=== PATIENT | female | born 1965 | race Caucasian/White ===

== ENCOUNTER 2021-11-16 10:02 | Inpatient (IN) ==
--- NOTE | 2021-08-06 15:29 | PAT Medication Instructions ---
Medication Instructions Date of Service August 06, 2021 Home Medications aspirin 81 mg tablet,delayed release (Aspirin Low Dose) 81 mg PO QAM atorvastatin 40 mg tablet 40 mg PO QPM clopidogrel 75 mg tablet 75 mg PO QAM docusate sodium 250 mg capsule (Stool Softener) 250 mg PO QPM famotidine 40 mg tablet (Pepcid) 40 mg PO QPM vitamin B complex and vitamin C no.20-folic acid 1 mg capsule (Triphrocaps) 1 cap PO QPM cholecalciferol (vitamin D3) 50 mcg (2,000 unit) capsule 50 mcg PO 3XWK insulin degludec 100 unit/mL (3 mL) subcutaneous pen (Tresiba FlexTouch U-100 insulin) 20 unit SUBCUT HS multivitamin (Daily Multi-Vitamin) 1 tab PO QAM furosemide 40 mg tablet 40 mg PO BID [facility] 1 dose INHALATION UD PRN calcium acetate(phosphat bind) 667 mg capsule 667 mg PO UD insulin lispro 100 unit/mL subcutaneous pen (Humalog KwikPen (U-100) Insulin) 1 unit SUBCUT UD lisinopril 20 mg tablet 20 mg PO BID ASK your prescriber and surgeon aspirin 81 mg tablet,delayed release (Aspirin Low Dose) 81 mg PO QAM clopidogrel 75 mg tablet 75 mg PO QAM DO NOT take the morning of surgery cholecalciferol (vitamin D3) 50 mcg (2,000 unit) capsule 50 mcg PO 3XWK multivitamin (Daily Multi-Vitamin) 1 tab PO QAM furosemide 40 mg tablet 40 mg PO BID calcium acetate(phosphat bind) 667 mg capsule 667 mg PO UD insulin lispro 100 unit/mL subcutaneous pen (Humalog KwikPen (U-100) Insulin) 1 unit SUBCUT UD lisinopril 20 mg tablet 20 mg PO BID [facility] 1 dose INHALATION UD PRN Take evening before surgery atorvastatin 40 mg tablet 40 mg PO QPM docusate sodium 250 mg capsule (Stool Softener) 250 mg PO QPM famotidine 40 mg tablet (Pepcid) 40 mg PO QPM vitamin B complex and vitamin C no.20-folic acid 1 mg capsule (Triphrocaps) 1 cap PO QPM insulin degludec 100 unit/mL (3 mL) subcutaneous pen (Tresiba FlexTouch U-100 insulin) 20 unit SUBCUT HS furosemide 40 mg tablet 40 mg PO BID [facility] 1 dose INHALATION UD PRN (if needed) calcium acetate(phosphat bind) 667 mg capsule 667 mg PO UD insulin lispro 100 unit/mL subcutaneous pen (Humalog KwikPen (U-100) Insulin) 1 unit SUBCUT UD lisinopril 20 mg tablet 20 mg PO BID Other Notes If you have any questions please call us at [phone] or [phone] or [phone] or [phone]
--- NOTE | 2021-08-10 10:59 | Anesthesiology Consultation ---
Date of Service August 10, 2021 Assessment & Plan (1) Encounter for pre-operative examination: - COVID screening: Per assessment on 08/10: Travel screen- Returned from travel to [place] 08/06 to visit friends (via car). No known COVID-19 positive contacts or current COVID-19 related symptoms. Patient vaccinated. Surgeon arranging preop COVID testing (scheduled 08/26; location TBD by surgeon's office). Awaiting results. - Check BSG, BMP AM DOS (received dialysis M/W/F, current DOS for a Monday; Surgeon's office to be coordinating with dialysis center/patient's roll operator for adjustments to dialysis for week of surgery) - Cardiovascular office visit note (05/25/21): "right foot ulcer with osteomyelitis status post great toe amputation.. Coronary artery disease--PCI of LAD.. Patient presents for followup of peripheral arterial disease. Recently required amputation of right great toe for nonhealing ulcer with osteomyelitis. Plans to undergo additional revision later this week with possible additional digit amputation. This is being performed by Dr. Plummer in [place]. Noninvasive vascular testing performed in our office today. Right digit pressure is 70 mmHg, consistent with adequate wound healing. Arterial duplex shows widely patent right YELITZA without significant restenosis. Feel current vascular supply is adequate for wound healing and no plans for additional vascular intervention at this time. Patient would like to follow with our office for her cardiology care as well." F/U 4 months recommended. Chart Review Chart Review: Acceptable Risk for Surgery (pending evaluation AM DOS) and Patient seen in Pre Admission Testing Teaching & Discussion Pre-Anesthesia Teaching/Discussion Notes: Instructed NPO after midnight before surgery,except medications with 15 cc of water. Medication instructions provided according to the PAT guidelines. History Surgery Operation Date: 08/30/21 11:05 Proposed Procedures p L4-L5 Decompression and Fusion, Spinal Cord Monitoring - Jacky Tatum DO Height/Weight Height: 5 ft 4 in Weight: 74.9 kg Allergies Allergy/AdvReac Type Severity Reaction Status Date / Time latex Allergy Mild Localized Verified 08/10/21 11:07 rash gabapentin AdvReac Intermediate Dizziness Verified 08/06/21 11:51 Medications Home Medications Medication Instructions Recorded Confirmed Last Taken aspirin 81 mg tablet,delayed 81 mg PO QAM 10/30/18 08/06/21 11/19/18 17:00 release (Aspirin Low Dose) atorvastatin 40 mg tablet 40 mg PO QPM 10/30/18 08/06/21 11/19/18 17:00 clopidogrel 75 mg tablet 75 mg PO QAM 10/30/18 08/06/21 11/19/18 17:00 docusate sodium 250 mg capsule 250 mg PO QPM 10/30/18 08/06/21 11/19/18 17:00 (Stool Softener) famotidine 40 mg tablet (Pepcid) 40 mg PO QPM 10/30/18 08/06/21 11/19/18 17:00 vitamin B complex and vitamin C 1 cap PO QPM 10/30/18 08/06/21 10/31/18 20:00 no.20-folic acid 1 mg capsule (Triphrocaps) cholecalciferol (vitamin D3) 50 50 mcg PO 3XWK cap 12/24/20 08/06/21 Unknown mcg (2,000 unit) capsule insulin degludec 100 unit/mL (3 20 unit SUBCUT HS ml 12/24/20 08/06/21 Unknown mL) subcutaneous pen (Tresiba FlexTouch U-100 insulin) multivitamin (Daily Multi-Vitamin) 1 tab PO QAM 12/24/20 08/06/21 Unknown furosemide 40 mg tablet 40 mg PO BID 01/06/21 08/06/21 Unknown [facility] 1 dose INHALATION UD PRN 08/06/21 08/06/21 Unknown calcium acetate(phosphat bind) 667 667 mg PO UD 08/06/21 08/06/21 Unknown mg capsule insulin lispro 100 unit/mL 1 unit SUBCUT UD 08/06/21 08/06/21 Unknown subcutaneous pen (Humalog KwikPen (U-100) Insulin) lisinopril 20 mg tablet 20 mg PO BID 08/06/21 08/06/21 Unknown Past Medical History Medical History Anemia Anxiety and depression Arthritis CAD (coronary artery disease) Stent x1 (2014) Diabetes mellitus, type 2 IDDM ESRD (end stage renal disease) on dialysis M/W/F ( [facility] in [place]), Follows with Dr. Latonia AVENDAÑO GERD (gastroesophageal reflux disease) Hyperlipidemia Hypertension Obesity PAD (peripheral artery disease) Peripheral neuropathy B/L feet Spinal stenosis Stroke 2014, no residual deficits Exercise / Class Metabolic Activity III < 4 Walking/Shop/Light housework (No CP or SOB with normal daily activities- does note some SOB with stairs in setting of "pinched" lumbar nerve) Past Family History Family History Mother Family history of diabetes mellitus Grandmother (Paternal) Family history of diabetes mellitus Grandmother (Maternal) Family history of diabetes mellitus Other No family history of adverse response to anesthesia Past Surgical History Surgical History History of amputation Right 1st/2nd toe amputation, All toes on left amputated History of carpal tunnel release R/L History of cataract extraction with lens replacement R/L History of section History of esophagogastroduodenoscopy (EGD) History of heart artery stent Stent x1 (2014) History of hysterectomy Lap hysterectomy + BSO History of nasal septoplasty S/P angiogram of extremity R/L S/P gastric surgery Gastric sleeve ([facility] ) Past Anesthesia History No Hx of Anesthesia Complications and No Family Hx of Anesthesia Complications History of PONV No Hx of PONV and Hx of Motion Sickness (Remote) Social History Smoking Status: Current every day smoker tobacco type: cigarettes Smoking cigarettes per day: 5-6 cigs/day Do You Dip or Chew Tobacco: No Hx Alcohol Use: No Hx Substance Use: Yes substance use type: marijuana (Medical marijuana card PRN insomnia) Review of Systems Patient denies chest pain, shortness of breath, fever, chills, cough, wheezing, palpitations. Physical Exam Vital Signs VITALS BP 133/82 P 84 TEMP 98.9 SP02 100%RA RESP 16 PHYSICAL Full cervical extension range of motion. Full TMJ range of motion. TMD 3.5 finger breaths Mallampati Score 1 Dentition: + crowns (one crown fell off left lower molar) Lungs: clear throughout to auscultation Cardiac: regular rate and rhythm, no murmurs noted Spine: normal Carotid arteries: negative bruit Extremities: right foot in boot Lab Results Anesthesia Preop Results Results Anesthesia Widget: WBC 8.44 K/uL (4.8-10.8) 08/10/21 Hgb 12.1 g/dL (12.0-16.0) 08/10/21 Hct 37.5 % (37-47) 08/10/21 Plt 351 K/uL (130-400) 08/10/21 Na 139 mmol/L (136-145) 08/10/21 K 4.4 mmol/L (3.5-5.1) 08/10/21 Cl 100 mmol/L (98-107) 08/10/21 CO2 33 mmol/L (21-32) H 08/10/21 BUN 29 mg/dl (7-18) H 08/10/21 Creat 6.95 mg/dl (0.6-1.2) H* 08/10/21 Glucose Level 172 mg/dl (70-99) H 08/10/21 PT 10.5 Seconds (9.0-12.0) 08/10/21 PTT 29.9 Seconds (21.0-31.0) 08/10/21 INR 1.0 (0.9-1.1) 08/10/21 Urine Color Dark Yellow 08/10/21 Urine Appearance Clear (Clear) 08/10/21 Urine pH 8.5 (4.5-7.5) H 08/10/21 Urine Specific [place] 1.016 (1.000-1.030) 08/10/21 Urine Protein 2+ (Negative) H 08/10/21 Urine Glucose (UA) Negative (Negative) 08/10/21 Urine Ketones Trace (Negative) H 08/10/21 Urine Blood Negative (Negative) 08/10/21 Urine Nitrite Negative (Negative) 08/10/21 Urine Bilirubin Negative (Negative) 08/10/21 Urine Urobilinogen Negative (Negative) 08/10/21 Urine Leukocyte Esterase 1+ (Negative) H 08/10/21 Urine WBC (Auto) 10-30 /hpf (0-5) H 08/10/21 Urine RBC (Auto) 0-4 /hpf (0-4) 08/10/21 Urine Hyaline Casts (Auto) 1-5 /lpf (0-5) 08/10/21 Urine Epithelial Cells (Auto) >30 /lpf (0-5) H 08/10/21 Urine Bacteria (Auto) 1+ (Negative) H 08/10/21 Blood Type O Positive 08/10/21 Antibody Screen NEGATIVE 08/10/21 Lab Comments: Abnormal UA > results forwarded to surgeon/PCP* 03/08/21 HGBA1C 6.2% Testing Electrocardiogram Date: 02/08/21 Normal sinus rhythm (~75 bpm per visual assessment). Possible LAE. Anterior infarct, age undetermined. Chest X-Ray Date: 02/08/21 Chronic right hemidiaphragm elevation. Mild degenerative changes of the spine. No acute cardiopulmonary disease.
[~2021-11-16 10:02] MED LIST: ACETAMINOPHEN 500 MG TAB PO SCH; CeleBREX 200 MG CAP PO SCH; GABAPENTIN 600 MG DOSE PO SCH; LR 15ML/HR IV SCH; SODIUM CHLORIDE 0.9% 1000ML IV SCH; ceFAZolin 2000MG 2,000 MG/15 ML SYR IV SCH
[2021-11-16] MEDS ORDERED: MIDAZOLAM HCL 1 MG/ML 2ML VIAL ONE (10:10)
[2021-11-16] MEDS ORDERED: fentaNYL citrate 100 MCG/2 ML VIAL ONE (10:11)
[2021-11-16 10:39] LABS: Basophils # (auto) 0.05 K/uL (0-0.2); Basophils % (auto) 0.6 %; Eosinophils # (auto) 0.21 K/uL (0-0.5); Eosinophils % (auto) 2.6 %; Hematocrit (blood only) 38.4 % (37-47); Hemoglobin 12.4 g/dL (12.0-16.0); Immature Granulocytes # (auto) 0.01 K/uL (0.00-0.02); Immature Granulocytes % (auto) 0.1 %; Lymphocytes # (auto) 1.75 K/uL (1.2-3.4); Mean Corpuscular Hemoglobin 32.1 pg (25-34); Mean Corpuscular Volume 99.5 fL (80-100); Mean Platelet Volume 10.3 fL (7.4-10.4); Monocytes % (auto) 8.8 %; Neutrophils # (auto) 5.24 K/uL (1.4-6.5); Neutrophils % (auto) 65.9 %; Platelet Count 264 K/uL (130-400); RDW Coefficient of Variation 15.3 % (11.5-14.5); RDW Standard Deviation 54.8 fL (36.4-46.3); Red Blood Count 3.86 M/uL (4.2-5.4); White Blood Count 7.96 K/uL (4.8-10.8)
[2021-11-16 10:54] LABS: Mean Corpuscular Hgb Conc 32.3 g/dL (32-36)
[2021-11-16] MEDS ORDERED: ATROPINE SULFATE 0.1 MG/ML 10ML SYR IV PRN (10:54)
[2021-11-16] MEDS ORDERED: ONDANSETRON INJ 2 MG/ML 2 ML VIAL IV PRN ×2 (10:54→15:06)
[2021-11-16] MEDS ORDERED: HYDROmorphone INJ 1 MG/ML SYRINGE IV PRN (10:54)
[2021-11-16] MEDS ORDERED: ePHEDrine sulfate 50 MG/ML AMP IV PRN (10:54)
[2021-11-16 11:19] LABS: BUN Creatinine Ratio 8.2 (10-20); Calcium 9.4 mg/dl (8.5-10.1); Creatinine Clr Calc Pharmacy 11.1 ml/min; Est GFR (African American) 9.2 ml/min
--- NOTE | 2021-11-16 11:22 | History & Physical Bridge Note ---
Date of Service November 16, 2021 History & Physical Bridge Note I have examined the patient, reviewed the History & Physical and in the interval since the performance of the History & Physical I have noted the following changes of clinical significance: no changes noted
--- NOTE | 2021-11-16 11:23 | History & Physical Report ---
Date of Service November 16, 2021 Assessment & Plan (1) Lumbar disc herniation with radiculopathy: Plan: L4-L5 decompression and fusion History of Present Illness Chief Complaint: Back and leg pain Primary Care Provider: Meño Diaz MD This is a 56-year-old female presents with worsening back and leg pain after fa iling course of nonoperative care is here for surgical invention. Allergies Allergy/AdvReac Type Severity Reaction Status Date / Time latex Allergy Mild Localized Verified 11/16/21 10:34 rash gabapentin AdvReac Intermediate Dizziness Verified 11/16/21 10:34 Home Medications Medication Instructions Recorded Confirmed Type aspirin 81 mg tablet,delayed 81 mg PO QAM 10/30/18 11/16/21 History release (Aspirin Low Dose) docusate sodium 250 mg capsule 250 mg PO QPM 10/30/18 11/16/21 History (Stool Softener) vitamin B complex and vitamin C 1 cap PO QPM 10/30/18 11/16/21 History no.20-folic acid 1 mg capsule (Triphrocaps) cholecalciferol (vitamin D3) 50 50 mcg PO 3XWK cap 12/24/20 11/16/21 History mcg (2,000 unit) capsule insulin degludec 100 unit/mL (3 8 unit SUBCUT HS ml 12/24/20 11/16/21 History mL) subcutaneous pen (Tresiba FlexTouch U-100 insulin) multivitamin (Daily Multi-Vitamin) 1 tab PO QAM 12/24/20 11/16/21 History furosemide 40 mg tablet 40 mg PO BID 01/06/21 11/16/21 History [facility] 1 dose INHALATION UD PRN 08/06/21 11/16/21 History calcium acetate(phosphat bind) 667 667 mg PO UD 08/06/21 11/16/21 History mg capsule insulin lispro 100 unit/mL 1 unit SUBCUT UD 08/06/21 11/16/21 History subcutaneous pen (Humalog KwikPen (U-100) Insulin) lisinopril 20 mg tablet 20 mg PO BID 08/06/21 11/16/21 History atorvastatin 80 mg tablet (Lipitor) 80 mg PO PM 11/16/21 11/16/21 History carvedilol 25 mg tablet (Coreg) 25 mg PO BID 11/16/21 11/16/21 History pantoprazole 40 mg tablet,delayed 40 mg PO DAILY 11/16/21 11/16/21 History release (Protonix) Past Med/Surg History Medical History Anemia Anxiety and depression Arthritis CAD (coronary artery disease) Stent x1 (2014) Diabetes mellitus, type 2 IDDM ESRD (end stage renal disease) on dialysis M/W/F ( [facility] in [place]), Follows with Dr. Latonia AVENDAÑO GERD (gastroesophageal reflux disease) Hyperlipidemia Hypertension Obesity PAD (peripheral artery disease) Peripheral neuropathy B/L feet Spinal stenosis Stroke 2014, no residual deficits Surgical History History of amputation Right 1st/2nd toe amputation, All toes on left amputated History of carpal tunnel release R/L History of cataract extraction with lens replacement R/L History of section History of esophagogastroduodenoscopy (EGD) History of heart artery stent Stent x1 (2014) History of hysterectomy Lap hysterectomy + BSO History of nasal septoplasty S/P angiogram of extremity R/L S/P gastric surgery Gastric sleeve ([facility] ) Family History Mother Family history of diabetes mellitus Grandmother (Paternal) Family history of diabetes mellitus Grandmother (Maternal) Family history of diabetes mellitus Other No family history of adverse response to anesthesia Social History Smoking Status: Current every day smoker Cigarettes Per Day: 5-6 cigs/day; Second Hand Exposure: No; Do You Dip or Chew Tobacco: No; Tobacco Cessation Education Requested by Patient: No Hx Alcohol Use: No Hx Substance Use: No Preferred Language: Albanian Communication Ability: Effective Shake Out Worker Required: No Beliefs That Will Affect Care: Mandaeism Mandaeism Beliefs: ORIENTAL ORTHODOX Current Living Situation: Family Current Living Situation Comment: PARENTS HOUSE (FATHER, MOTHER AND BROTHER) Other Information That Helps Us Care for You: No Feels Safe at Home: Yes Safety Concerns: Feels Safe At This Time Assistive Devices: Glasses and Walker Assistive Devices Comment: READING GLASSES Physical Exam Physical Exam: Patient is alert and oriented Heart regular rhythm Lungs clear Results & Data ([facility]) Vital Signs (Past 12 Hours) Vital Signs Temp Pulse Resp BP Pulse Ox 11/16/21 10:38 37.2 C 68 20 138/85 99
[2021-11-16] MEDS ORDERED: ceFAZolin 330 MG/ML 1 GM VIAL ONE (11:24)
[2021-11-16] MEDS ORDERED: BUPIVACAINE/EPINEPHRINE 0.25% 1:200,000 30 ML VIAL ONE (11:25)
[2021-11-16] MEDS ORDERED: FLOSEAL HEMOSTATIC MATRIX 10ML TOP ONE (12:24)
[2021-11-16] MEDS ORDERED: PHENYLEPHRINE HCL 10 MG/ML VIAL ONE (12:28)
[2021-11-16] MEDS ORDERED: DEXAMETHASONE SOD INJ 4 MG/ML VIAL ONE (12:28)
[2021-11-16] MEDS ORDERED: PROPOFOL IV EMULSION 10 MG/ML 20 ML VIAL IV ONE (12:28)
[2021-11-16] MEDS ORDERED: LARYING-O-JET KIT (LTA) ONE (12:28)
[2021-11-16] MEDS ORDERED: LIDOCAINE 2% 2 ML VIAL/AMP(20MG/ML) INFIL ONE (12:28)
[2021-11-16] MEDS ORDERED: ONDANSETRON INJ 2 MG/ML 2 ML VIAL ONE (12:28)
[2021-11-16] MEDS ORDERED: GLYCOPYRROLATE 0.2 MG/ML VIAL ONE (12:28)
[2021-11-16] MEDS ORDERED: NEOSTIGMINE METHYLSULFATE 1 MG/ML 10ML VIAL ONE (12:28)
[2021-11-16] MEDS ORDERED: ePHEDrine sulfate 50 MG/ML AMP ONE (12:28)
[2021-11-16] MEDS ORDERED: ROCURONIUM BROMIDE 10 MG/ML 5 ML VIAL IV ONE (12:28)
--- NOTE | 2021-11-16 13:50 | Operative Report ---
Post Operative Report Pre & Post Diagnosis Operation Date: 11/16/21 12:05 Pre-Op Diagnosis: Spondylolisthesis L4-L5 Lumbar disc condition with radiculopathy L4-5 Post-Op Diagnosis: Same I identified the patient and participated in the time-out.: Yes Procedure Operation Date: 11/16/21 12:05 Actual Procedures #1 lumbar decompression with bilateral medial facetectomies and foraminotomies L3-L4 L4-L5. #2 posterior spinal fusion L4-5. #3 placement of posterior instrumentation L4-5. #4 interbody fusion L4-5. #5 placement of titanium cage 10 x 22 mm at L4-5. #6 placement locally harvested morselized autograft in the posterior gutters. #7 placement of infuse collagen sponge, master graft in the posterior gutters and I factor in the body space. Surgeon Jacky Tatum DO Retail Key Holder Ninfa Sellers Estimated Blood Loss 150 Findings Consistent with Post-Op Diagnosis Specimens None Indications This is a 48-year-old female presents with severe radiculopathy and back pain after failing extensive course of nonoperative care she is here for the above- mentioned procedure. Description of Procedure Patient was met with identified informed consent obtained. Patient was then taken to the operative suite underwent intubation and placed in a prone position the El table on top of the Abiodun frame. All bony prominences well-padded eyes inspected to ensure no external pressure placed upon the. This point the lumbar spine was prepped and draped in sterile fashion. Sharp dissection with the assistance of Bovie cautery was performed down to and exposing the lamina and transverse processes of L4-L5. From caudal to cephalad fashion complete laminectomy of L4 partial laminectomy of L3 was performed including bilateral medial facetectomies and foraminotomies addressing severe spinal stenosis was evidence of massive amounts of disc material to clean the left lateral recess and foramina. After this was complete pedicle screws were placed in L4-L5 bilaterally with assistance of fluoroscopy the proper sized anand placed. By way of a transforaminal approach and left complete discectomy of L4-5 was performed endplates curetted to subcortical bleeding bone and a 10 x 22 mm titanium cage filled with I factor tapped in position. The rods were then compressed locked in final position bilaterally. The transverse processes of L4-L5 burred to subcortical bleeding bone. Infuse collagen sponge, master graft locally harvested morselized autograft was placed in the posterior gutters. 15 round KIRSTEN drain inserted. The incision was then closed with 1 Vicryl fascia 2-0 Vicryl subcutaneously and 4 Monocryl for final skin closure. Steri-Strip sterile dressings placed. Patient waken taken to PACU stable condition. Please note spinal cord monitoring was utilized throughout the procedure no changes noted. Lastly Ninfa Sellers was present at the entire surgery and while the patient positioning complex portions of the surgery and fascial closure. I attest to the content of the Intraoperative Record and any orders documented therein. Any exceptions are noted below.
--- NOTE | 2021-11-16 14:45 | Fluoroscopy Report ---
INTRAOPERATIVE RADIOGRAPHS CLINICAL HISTORY: L4-L5 spinal fusion. Fluoroscopy time: 26 seconds. FINDINGS: 2 spot fluoroscopic views of the lumbar spine are presented. There has been discectomy at L 4-L5 with laminectomy and posterior fusion at this level. Interpedicular screws are in place. The ort hopedic hardware appears intact. There is mild anterolisthesis at L4-L5. IMPRESSION: Intraoperative images from L4-L5 spinal fusion as above. Electronically signed by: Arnav Barnett M.D. 11/16/2021 2:44 PM
[2021-11-16] MEDS: fentaNYL citrate 100 MCG/2 ML VIAL IV PRN ×2 (14:53→14:58)
--- NOTE | 2021-11-16 15:00 | Anesthesiology Progress Note ---
Date of Service November 16, 2021 Anesthesia Post Procedure Vital Signs Vital Signs: Temp Pulse Pulse Resp BP Pulse Ox 11/16/21 14:40 69 16 147/52 H 99 11/16/21 14:30 59 L 12 113/40 L 97 11/16/21 14:20 52 L 9 L 150/46 H 100 11/16/21 14:10 76 13 161/61 H 100 11/16/21 14:00 36.2 C L 77 18 151/68 H 100 11/16/21 10:38 37.2 C 68 20 138/85 99 Pain Intensity Back: Pain Intensity: 3 Transfer of Care Handoff Completed per policy Notes Mental Status: alert / awake / arousable and participated in evaluation Patient Amnestic to Procedure: Yes Nausea / Vomiting: adequately controlled Pain: adequately controlled Airway Patency, RR, SpO2: stable & adequate BP & HR: stable & adequate Hydration State: stable & adequate Anesthetic Complications: no major complications apparent
[2021-11-16] MEDS ORDERED: FAMOTIDINE 20 MG TAB PO PRN (15:06)
[2021-11-16] MEDS ORDERED: PHARMACY GLYCEMIC MGMT CONSULT PRN (15:06)
[2021-11-16] MEDS ORDERED: ACETAMINOPHEN 500 MG TAB PO PRN (15:06)
[2021-11-16] MEDS ORDERED: hydrOXYzine HCl 25 MG TAB PO PRN (15:06)
[2021-11-16] MEDS ORDERED: diphenhydrAMINE Capsule 25 MG CAP PO PRN (15:06)
[2021-11-16] MEDS ORDERED: DO NOT ADMINISTER FLU VACCINE PRN (15:06)
[2021-11-16] MEDS ORDERED: bisacodyL 10 MG SUPP PR PRN (15:06)
[2021-11-16] MEDS ORDERED: ONDANSETRON 4 MG OD TAB PO PRN (15:06)
[2021-11-16] MEDS ORDERED: ACETAMINOPHEN 1,000 MG/100 ML VIAL IV PRN (15:06)
[2021-11-16] MEDS ORDERED: PROMETHAZINE HCL 12.5 MG in SODIUM CHLORIDE 0.9% 50 ML IV PRN (15:06)
[2021-11-16] MEDS ORDERED: METOCLOPRAMIDE HCL INJ 5 MG/ML 2 ML VIAL IV PRN (15:06)
[2021-11-16] MEDS ORDERED: ALUMINUM/MAGNESIUM SUSP 30 ML UDC PO PRN (15:06)
[2021-11-16] MEDS ORDERED: LORazepam 0.5 MG TAB PO PRN (15:06)
[2021-11-16] MEDS ORDERED: traMADol HCL 50 MG TABLET PO PRN (15:06)
[2021-11-16] MEDS ORDERED: LORazepam 2 MG/1 ML VIAL IV PRN (15:06)
[2021-11-16] MEDS ORDERED: DO NOT ADMINISTER PNEUMOCOCCAL VACCINE PRN (15:06)
[2021-11-16] MEDS ORDERED: NALOXONE HCL 0.4 MG/1 ML VIAL/CARP IV PRN (15:06)
[2021-11-16] MEDS ORDERED: MAGNESIUM HYDROXIDE SUSP 30 ML UDC PO PRN (15:06)
[2021-11-16] MEDS ORDERED: SOD PHOSPHATE/SOD BIPHOSPHATE ENEMA 132 ML BTL PR PRN (15:06)
[2021-11-16] MEDS ORDERED: MEDICAL MARIJUANA INH PRN (15:18)
[2021-11-16] MEDS ORDERED: CALCIUM ACETATE 667 MG CAP/TAB PO PRN (15:42)
[2021-11-16] MEDS ORDERED: SODIUM CHLORIDE 0.9% 1000ML 1,000 ML IV SCH (16:00)
[2021-11-16] MEDS ORDERED: CARBOHYDRATES FOR HYPOGLYCEMIA PO PRN (16:30)
[2021-11-16] MEDS ORDERED: GLUCOSE 10 TABS/TUBE PO PRN (16:30)
[2021-11-16] MEDS ORDERED: DEXTROSE 50% 50 ML SYRINGE IV PRN (16:30)
[2021-11-16] MEDS ORDERED: GLUCAGON FOR INJ 1 MG VIAL IM PRN (16:30)
[2021-11-16] MEDS ORDERED: GLUCOSE 40% GEL 15 GM TUBE PO PRN (16:30)
--- NOTE | 2021-11-16 16:31 | Consultation ---
Date of Consultation November 16, 2021 Assessment & Plan (1) Status post lumbar surgery: Post op day# 0 S/P L4-L5 decompression and fusion today by Dr Tatum EBL# 150ml Post op pt very drowsy -pain management per ortho -wound management per ortho -PT/OT as appropriate -DVT prophylaxis per ortho -incentive spirometry -monitor H&H for acute blood loss anemia; pre-op Hgb: 12.4 (2) ESRD (end stage renal disease) on dialysis: ESRD On HD on Mon, Mon, Mon schedule Follows with Dr Lincoln in [place] Reports last HD was on 10/18/21 -Nephrology consult for assistance with HD -Hold lisinopril, lasix for now -Reducing IVF from 100ml/hr to 50ml post op (3) Diabetes mellitus, type 2: Insulin dependent A1c: 6.2 on 02/2021 basal bolus insulin per protocol. Glycemic pharmacist on board. Appreciate management (4) CAD (coronary artery disease): (5) PAD (peripheral artery disease): S/P PCI to LAD. H/O LE angioplasty -Continue aspirin, atorvastatin, carvedilol (6) Hypertension: BPs soft with SBP in low 90's -Hold lisinopril and lasix -Continue carvedilol (7) Hyperlipidemia: -Continue atorvastatin (8) GERD (gastroesophageal reflux disease): Continue PPI DVT Prophylaxis -SCDs Disposition per primary provider Follows with Dr Meño Diaz in [place] for routine care Pt was seen and care coordinated with Dr Saldivar. See addendum Supervising Physician Co-Signing Physician Notes Patient is a 56-year-old female with history of end-stage renal disease on hemodialysis, coronary artery disease, diabetes mellitus and other medical problems was consulted for postop medical management. Patient had lumbar decompression fusion surgery by Dr. Tatum. Patient is very drowsy postoperatively. Patient received fentanyl, Ativan for pain control. Her blood pressure was low postoperatively, improved with IV fluids. Denies any chest pain, shortness of breath, dizziness. Please review HPI for complete details. On exam patient is drowsy, no apparent distress, normocephalic atraumatic, EOMI, normal breath sounds, clear to auscultation, trace pedal edema, abdomen soft, nontender, normal bowel sounds, S1-S2, no murmur, grossly no focal deficits, back: Surgical site in dressing, + amputation of bilateral fore foot. Spondylolisthesis L4-L5, Lumbar disc condition with radiculopathy L4-5 S/P lumbar decompression fusion surgery by Dr. Tatum POD#0. Postoperative hypotension. Cautious IV fluids given history of end-stage renal disease. Monitor for postop anemia. Bowel regimen to prevent constipation. Hold pain meds for excessive sedation. Incentive spirometry. DVT prophylaxis as per primary team. Nephrology consulted to help with hemodialysis. Continue insulin therapy for diabetes management. I personally reviewed the record. Patient is interviewed and examined at bedside. Patient's care is coordinated with Anayeli Higgins PA-C. Please refer to the documentation above for details of patient's presentation and for discussion of other issues. History of Present Illness Requesting Physician: Dr. Tatum Reason for Consultation: Postop medical management Attending Physician: Jacky Tatum, History of Present Illness Patient is 56-year-old female with PMH ESRD on HD on Monday schedule, CAD s/p PCI LAD, PAD, DM II, HTN, dyslipidemia seen in medical consultation s/p L4-L5 decompression and fusion today by Dr Tatum. Post op patient is very drowsy. Only able to obtain limited history from patient secondary to drowsiness. Prior hospital records and outpatient records reviewed. Allergies Allergy/AdvReac Type Severity Reaction Status Date / Time latex Allergy Mild Localized Verified 11/16/21 10:34 rash gabapentin AdvReac Intermediate Dizziness Verified 11/16/21 10:34 Home Medications Medication Instructions Recorded Confirmed Type aspirin 81 mg tablet,delayed 81 mg PO QAM 10/30/18 11/16/21 History release (Aspirin Low Dose) docusate sodium 250 mg capsule 250 mg PO QPM 10/30/18 11/16/21 History (Stool Softener) vitamin B complex and vitamin C 1 cap PO QPM 10/30/18 11/16/21 History no.20-folic acid 1 mg capsule (Triphrocaps) cholecalciferol (vitamin D3) 50 50 mcg PO 3XWK cap 12/24/20 11/16/21 History mcg (2,000 unit) capsule insulin degludec 100 unit/mL (3 8 unit SUBCUT HS ml 12/24/20 11/16/21 History mL) subcutaneous pen (Tresiba FlexTouch U-100 insulin) multivitamin (Daily Multi-Vitamin) 1 tab PO QAM 12/24/20 11/16/21 History furosemide 40 mg tablet 40 mg PO BID 01/06/21 11/16/21 History Medical Marijauna 1 dose INHALATION UD PRN 08/06/21 11/16/21 History calcium acetate(phosphat bind) 667 667 mg PO UD 08/06/21 11/16/21 History mg capsule insulin lispro 100 unit/mL 1 unit SUBCUT UD 08/06/21 11/16/21 History subcutaneous pen (Humalog KwikPen (U-100) Insulin) lisinopril 20 mg tablet 20 mg PO BID 08/06/21 11/16/21 History atorvastatin 80 mg tablet (Lipitor) 80 mg PO PM 11/16/21 11/16/21 History carvedilol 25 mg tablet (Coreg) 25 mg PO BID 11/16/21 11/16/21 History pantoprazole 40 mg tablet,delayed 40 mg PO DAILY 11/16/21 11/16/21 History release (Protonix) Patient History Medical History (Updated 11/16/21 @ 17:32 by Anayeli Higgins PA-C) Anemia Anxiety and depression Arthritis CAD (coronary artery disease) Stent x1 (2014) Diabetes mellitus, type 2 IDDM ESRD (end stage renal disease) on dialysis M/W/F ( Renal [facility] in [place]), Follows with Dr. Latonia AVENDAÑO GERD (gastroesophageal reflux disease) Hyperlipidemia Hypertension Obesity PAD (peripheral artery disease) Peripheral neuropathy B/L feet Spinal stenosis Stroke 2014, no residual deficits Surgical History (Updated 11/16/21 @ 17:32 by Anayeli Higgins PA-C) History of amputation Right 1st/2nd toe amputation, All toes on left amputated History of carpal tunnel release R/L History of cataract extraction with lens replacement R/L History of section History of esophagogastroduodenoscopy (EGD) History of heart artery stent Stent x1 (2014) History of hysterectomy Lap hysterectomy + BSO History of nasal septoplasty S/P angiogram of extremity R/L S/P gastric surgery Gastric sleeve ([facility] ) Family History Mother Family history of diabetes mellitus Grandmother (Paternal) Family history of diabetes mellitus Grandmother (Maternal) Family history of diabetes mellitus Other No family history of adverse response to anesthesia Social History Smoking Status: Current every day smoker Cigarettes Per Day: 5-6 cigs/day; Second Hand Exposure: No; Do You Dip or Chew Tobacco: No; Tobacco Cessation Education Requested by Patient: No Hx Alcohol Use: No Hx Substance Use: No Preferred Language: Urdu Communication Ability: Effective Epic Cadence Specialists Required: No Beliefs That Will Affect Care: Orthodoxy Orthodoxy Beliefs: ZOROASTRIAN Current Living Situation: Family Current Living Situation Comment: PARENTS HOUSE (FATHER, MOTHER AND BROTHER) Other Information That Helps Us Care for You: No Feels Safe at Home: Yes Safety Concerns: Feels Safe At This Time Assistive Devices: Glasses and Walker Assistive Devices Comment: READING GLASSES Review of Systems Review of Systems: Unobtainable due to cognitive status Physical Exam Physical Exam: General: no acute distress, currently very drowsy, WDWN sitting up in bedside chair Head: normocephalic, atraumatic Eyes: conjunctiva non-injected, anicteric ENT: normal inspection external ears, nose, mucous membranes moist Neck: supple, trachea midline Lungs: clear, no respiratory distress, no wheezing/rhonchi/rales CV: RRR, no murmur, no pretibial edema Abd: normal BS, soft, no apparent tenderness Ext: no cyanosis, no calf tenderness, pedal pushes and pulls intact, +amputation toes on right and left Neuro: Very drowsy, awakens to touch and able to answer with 1-2 word answer and falls back asleep Skin: warm, dry Results & Data ([facility]) Vital Signs (Past 12 Hours) Vital Signs Temp Pulse Pulse Resp BP Pulse Ox 11/16/21 15:10 36.5 C 53 L 18 170/51 H 99 11/16/21 15:00 70 16 187/68 H 100 11/16/21 14:50 75 19 153/53 H 100 11/16/21 14:40 69 16 147/52 H 99 11/16/21 14:30 59 L 12 113/40 L 97 11/16/21 14:20 52 L 9 L 150/46 H 100 11/16/21 14:10 76 13 161/61 H 100 11/16/21 14:00 36.2 C L 77 18 151/68 H 100 11/16/21 10:38 37.2 C 68 20 138/85 99 Laboratory Results Short CBC 11/16/21 Range/Units 10:27 WBC 7.96 (4.8-10.8) K/uL Hgb 12.4 (12.0-16.0) g/dL Hct 38.4 (37-47) % Plt Count 264 (130-400) K/uL BMP 11/16/21 10:27 Sodium 140 Potassium 4.0 Chloride 96 L Carbon Dioxide 36 H BUN 45 H Creatinine 5.47 H* Glucose 101 H Calcium 9.4 Diagnostic Findings Lumbar Spine X-Ray 11/16/21 12:05 INTRAOPERATIVE RADIOGRAPHS CLINICAL HISTORY: L4-L5 spinal fusion. Fluoroscopy time: 26 seconds. FINDINGS: 2 spot fluoroscopic views of the lumbar spine are presented. There has been discectomy at L4-L5 with laminectomy and posterior fusion at this level. Interpedicular screws are in place. The orthopedic hardware appears intact. There is mild anterolisthesis at L4-L5. IMPRESSION: Intraoperative images from L4-L5 spinal fusion as above. Electronically signed by: Arnav Barnett M.D. 11/16/2021 2:44 PM
[2021-11-16] MEDS ORDERED: FUROSEMIDE 40 MG TAB PO SCH (17:00)
[2021-11-16] MEDS: CALCIUM ACETATE 667 MG CAP/TAB PO SCH (17:17)
[2021-11-16] MEDS: INSULIN ASPART PER UNIT SC SCH ×2 (17:18→21:57)
[2021-11-16] MEDS: DOCUSATE SODIUM/SENNA 50/8.6MG TAB PO SCH (20:24)
[2021-11-16] MEDS: ceFAZolin 2000MG 2,000 MG/15 ML SYR IV SCH (20:24)
[2021-11-16] MEDS: ATORVASTATIN 40 MG TAB PO SCH (20:25)
[2021-11-16] MEDS: DOCUSATE CALCIUM 240 MG CAPSULE PO SCH (20:25)
[2021-11-16] MEDS: NEPHROCAPS PO SCH (20:26)
[2021-11-16] MEDS ORDERED: NON-FORMULARY MEDICATION (Insulin Degludec [Tresiba Flextouch U-100] 100 unit/mL (3 mL) in SQ SCH (21:00)
[2021-11-16] MEDS ORDERED: INSULIN GLARGINE SOLOSTAR 100 UNITS/ML 3 ML PEN SC ONE (21:00)
[2021-11-16] MEDS: carvediloL 25 MG TAB PO SCH (21:50)
[2021-11-16] MEDS: HYDROmorphone INJ 0.5 MG/0.5 ML SYR IV PRN (23:17)
[2021-11-17] MEDS: oxyCODONE HCL IR 5 MG TAB (IMMEDIATE RELEASE) PO PRN ×2 (02:15→16:24)
[2021-11-17] MEDS: HYDROmorphone INJ 1 MG/ML SYRINGE IV PRN ×5 (04:11→20:04)
[2021-11-17] MEDS: ceFAZolin 2000MG 2,000 MG/15 ML SYR IV SCH (04:12)
[2021-11-17] MEDS: POLYETHYLENE (MIRALAX) 17 GM PACK PO SCH ×3 (05:35→18:06)
[2021-11-17 06:55] LABS: Basophils # (auto) 0.02 K/uL (0-0.2); Basophils % (auto) 0.2 %; Eosinophils # (auto) 0.01 K/uL (0-0.5); Eosinophils % (auto) 0.1 %; Hematocrit (blood only) 27.8 % (37-47); Hemoglobin 9.2 g/dL (12.0-16.0); Immature Granulocytes # (auto) 0.02 K/uL (0.00-0.02); Immature Granulocytes % (auto) 0.2 %; Lymphocytes # (auto) 1.55 K/uL (1.2-3.4); Lymphocytes % (auto) 14.2 %; Mean Corpuscular Hemoglobin 32.5 pg (25-34); Mean Corpuscular Hgb Conc 33.1 g/dL (32-36); Mean Corpuscular Volume 98.2 fL (80-100); Mean Platelet Volume 10.6 fL (7.4-10.4); Monocytes # (auto) 1.07 K/uL (0.11-0.59); Monocytes % (auto) 9.8 %; Neutrophils # (auto) 8.28 K/uL (1.4-6.5); Neutrophils % (auto) 75.5 %; Platelet Count 220 K/uL (130-400); RDW Coefficient of Variation 15.2 % (11.5-14.5); RDW Standard Deviation 54.2 fL (36.4-46.3); Red Blood Count 2.83 M/uL (4.2-5.4); White Blood Count 10.95 K/uL (4.8-10.8)
[2021-11-17 07:23] LABS: BUN Creatinine Ratio 8.5 (10-20); Calcium 8.7 mg/dl (8.5-10.1); Creatinine Clr Calc Pharmacy 9.4 ml/min; Est GFR (African American) 7.6 ml/min; Est GFR (Non-African American) 6.5 ml/min; Magnesium 2.2 mg/dl (1.7-2.4); Phosphorus 4.9 mg/dl (2.5-4.9); Potassium 4.7 mmol/L (3.5-5.1)
[2021-11-17] MEDS ORDERED: SODIUM CHLORIDE 0.9% 1000ML 1,000 ML IV PRN (07:43)
[2021-11-17] MEDS: carvediloL 25 MG TAB PO SCH ×2 (07:54→21:14)
[2021-11-17 07:55] LABS: Estimated Average Glucose 111 mg/dl; Hemoglobin A1C 5.5 % (4.5-5.6)
[2021-11-17] MEDS: MULTIVITAMIN TAB PO SCH (07:57)
[2021-11-17] MEDS: CHOLECALCIFEROL 1,000 UNITS 25 MCG TAB PO SCH (07:57)
[2021-11-17] MEDS: PANTOprazole 40 MG TAB PO SCH (07:57)
[2021-11-17] MEDS: ASPIRIN 81 MG ECTAB PO SCH (07:57)
[2021-11-17] MEDS: CALCIUM ACETATE 667 MG CAP/TAB PO SCH ×3 (07:57→18:06)
[2021-11-17] MEDS: INSULIN ASPART PER UNIT SC SCH ×4 (08:31→21:11)
--- NOTE | 2021-11-17 13:19 | Pharmacy Report ---
Pharmacy Glycemic Short Note 2 - Date of Service November 17, 2021 - Glycemic Short BSG Results (Last 24 hours): 11/16/21 11/16/21 11/17/21 15:43 20:54 05:55 Glucose 93 POC Glucose 161 H 166 H 11/17/21 08:14 Glucose POC Glucose 89 OUTPATIENT ANTIDIABETIC REGIMEN: * Tresiba 8 units HS * Humalog CR 6 ASSESSMENT: * Ms Arzola is a 56 y/o F on insulin at home who presents s/p spinal surgery. Patient's BSGs yesterday were 101-161-166 mg/dL. Fasting this morning was 89 mg/dL. * Patient received 4 units of Lantus last night. Continue today due to excellent fasting. * Novolog weight-based stress of 2. PLAN FOR INPATIENT GLYCEMIC CONTROL: * Basal insulin * Lantus 4 units SQ HS * Bolus insulin * NovoLog per scale ACHS or Q6hrs while NPO * Goal Range: Low 110 mg/dL - High 140 mg/dL * Correction Factor: 30 mg/dL/unit * Nutritional / Prandial insulin per carb ratio of 1 unit per 10 grams CHO consumed
--- NOTE | 2021-11-17 14:54 | Orthopedic Progress Note ---
Date of Service November 17, 2021 Assessment & Plan (1) Lumbar disc herniation with radiculopathy: Plan: This time we will continue physical therapy monitor her KIRSTEN output hopefully allow her to return home Monday after her dialysis. Admission and Anticipated Discharge Date Admission Date: November 16, 2021 Subjective Patient's back pain is controlled left leg symptoms markedly improved Physical Exam Physical Exam: On exam she is sitting up at the bedside. Is good strength testing. Results & Data ([facility]) Vital Signs (Past 12 Hours) Vital Signs Temp Pulse Pulse Pulse Resp BP BP 11/17/21 12:51 36.7 C 70 142/63 H 11/17/21 12:40 72 132/66 11/17/21 12:20 70 109/44 L 11/17/21 12:00 70 123/67 11/17/21 11:40 70 123/67 11/17/21 11:20 67 122/97 11/17/21 11:00 70 158/97 H 11/17/21 10:40 69 133/78 11/17/21 10:20 70 137/67 11/17/21 10:00 55 L 107/90 11/17/21 09:44 75 133/31 L 11/17/21 09:22 37.1 C 70 11/17/21 08:13 36.5 C 69 18 148/62 H Pulse Ox 11/17/21 12:51 11/17/21 12:40 11/17/21 12:20 11/17/21 12:00 11/17/21 11:40 11/17/21 11:20 11/17/21 11:00 11/17/21 10:40 11/17/21 10:20 11/17/21 10:00 11/17/21 09:44 11/17/21 09:22 11/17/21 08:13 100
--- NOTE | 2021-11-17 15:14 | Nephrology Consultation ---
Date of Consultation November 17, 2021 Assessment & Plan (1) ESRD (end stage renal disease) on dialysis: for routine HD today; goal 1.5-2L keeping sbp > 100; volume status and chemistries acceptable -no heparin on tx today -next HD on 11/19 or as clinical needs dictate >>significant drop in hgb noted - some likely dilutional; monitor History of Present Illness Reason for Consultation: ESRD on dialysis Requesting Physician: Dr Saldivar Attending Physician: Jacky Tatum, History of Present Illness 56 y/o F whom I'm asked to see for dialysis needs underwent L4-L5 decompression and fusion yesterday. For ESRD, she dialyzes MWF in [place] under the care of Dr Lincoln via [facility]; her last HD was 11/15 and was per her report uneventful. Other PMH includes DM on insulin, CAD s/p stent, PAD s/p RLE angioplasty and s/p R TMA, HL, tobacco abuse, stroke. Tells me she feels overall well though significant back pain at time of my evaluation. no sob, no n/v, no constipation. Tells me last HD she missed was x 1 several weeks ago d/t bad weather. She did have some postoperative hypotension yesterday and received IVF for this. Care reviewed w/ hospitalist service yesterday; did recommend lowering NS rate from 100 > 50 mL /hr at that time. Allergies Allergy/AdvReac Type Severity Reaction Status Date / Time latex Allergy Mild Localized Verified 11/16/21 10:34 rash gabapentin AdvReac Intermediate Dizziness Verified 11/16/21 10:34 Home Medications Medication Instructions Recorded Confirmed Type aspirin 81 mg tablet,delayed 81 mg PO QAM 10/30/18 11/16/21 History release (Aspirin Low Dose) docusate sodium 250 mg capsule 250 mg PO QPM 10/30/18 11/16/21 History (Stool Softener) vitamin B complex and vitamin C 1 cap PO QPM 10/30/18 11/16/21 History no.20-folic acid 1 mg capsule (Triphrocaps) cholecalciferol (vitamin D3) 50 50 mcg PO 3XWK cap 12/24/20 11/16/21 History mcg (2,000 unit) capsule insulin degludec 100 unit/mL (3 8 unit SUBCUT HS ml 12/24/20 11/16/21 History mL) subcutaneous pen (Tresiba FlexTouch U-100 insulin) multivitamin (Daily Multi-Vitamin) 1 tab PO QAM 12/24/20 11/16/21 History furosemide 40 mg tablet 40 mg PO BID 01/06/21 11/16/21 History Medical Marijauna 1 dose INHALATION UD PRN 08/06/21 11/16/21 History calcium acetate(phosphat bind) 667 667 mg PO UD 08/06/21 11/16/21 History mg capsule insulin lispro 100 unit/mL 1 unit SUBCUT UD 08/06/21 11/16/21 History subcutaneous pen (Humalog KwikPen (U-100) Insulin) lisinopril 20 mg tablet 20 mg PO BID 08/06/21 11/16/21 History atorvastatin 80 mg tablet (Lipitor) 80 mg PO PM 11/16/21 11/16/21 History carvedilol 25 mg tablet (Coreg) 25 mg PO BID 11/16/21 11/16/21 History pantoprazole 40 mg tablet,delayed 40 mg PO DAILY 11/16/21 11/16/21 History release (Protonix) oxycodone 5 mg tablet 5 mg PO Q6H PRN #30 tab 11/17/21 Rx tramadol 50 mg tablet 50 mg PO Q6H PRN #30 tab 11/17/21 Rx Patient History Medical History Anemia Anxiety and depression Arthritis CAD (coronary artery disease) Stent x1 (2014) Diabetes mellitus, type 2 IDDM ESRD (end stage renal disease) on dialysis M/W/F ( Renal [facility] in [place]), Follows with Dr. Latonia AVENDAÑO GERD (gastroesophageal reflux disease) Hyperlipidemia Hypertension Obesity PAD (peripheral artery disease) Peripheral neuropathy B/L feet Spinal stenosis Stroke 2014, no residual deficits Surgical History History of amputation Right 1st/2nd toe amputation, All toes on left amputated History of carpal tunnel release R/L History of cataract extraction with lens replacement R/L History of section History of esophagogastroduodenoscopy (EGD) History of heart artery stent Stent x1 (2014) History of hysterectomy Lap hysterectomy + BSO History of nasal septoplasty S/P angiogram of extremity R/L S/P gastric surgery Gastric sleeve ([facility] ) Family History Mother Family history of diabetes mellitus Grandmother (Paternal) Family history of diabetes mellitus Grandmother (Maternal) Family history of diabetes mellitus Other No family history of adverse response to anesthesia Social History Smoking Status: Current every day smoker Cigarettes Per Day: 5-6 cigs/day; Second Hand Exposure: No; Do You Dip or Chew Tobacco: No; Tobacco Cessation Education Requested by Patient: No Hx Alcohol Use: No Hx Substance Use: No Preferred Language: Monegasque Communication Ability: Effective Frozen Food Selector Required: No Beliefs That Will Affect Care: Taoist Taoist Beliefs: BAPTISM Current Living Situation: Family Current Living Situation Comment: PARENTS HOUSE (FATHER, MOTHER AND BROTHER) Other Information That Helps Us Care for You: No Feels Safe at Home: Yes Safety Concerns: Feels Safe At This Time Assistive Devices: Walker Assistive Devices Comment: READING GLASSES Review of Systems Review of Systems: All systems reviewed & are unremarkable except as noted in Subjective Physical Exam Constitutional: well developed, well nourished and average body habitus; no acute distress Eyes: EOM intact bilaterally ENMT: Ears: no external ear abnormality Nose: no external nose abnormality Mouth: + dry oral mucous membranes Neck: no nuchal rigidity Respiratory: normal respiratory effort Auscultation: + diminished lung sounds Cardiovascular: Rate/Rhythm: regular rate and regular rhythm Extremities: + edema (trace BL ankle) Gastrointestinal (Abdomen): Inspection/Auscultation: normal bowel sounds Percussion/Palpation: abdomen soft; abdomen nontender Musculoskeletal: Extremities: strength 5/5 throughout lower back wound Skin: no rashes, warm and dry Neurologic: candelaria, fluent speech, no tremor Psychiatric: Orientation: oriented x 3 Results & Data ([facility]) Vital Signs (Past 12 Hours) Vital Signs Temp Pulse Pulse Pulse Resp BP BP 11/17/21 12:51 36.7 C 70 142/63 H 11/17/21 12:40 72 132/66 11/17/21 12:20 70 109/44 L 11/17/21 12:00 70 123/67 11/17/21 11:40 70 123/67 11/17/21 11:20 67 122/97 11/17/21 11:00 70 158/97 H 11/17/21 10:40 69 133/78 11/17/21 10:20 70 137/67 11/17/21 10:00 55 L 107/90 11/17/21 09:44 75 133/31 L 11/17/21 09:22 37.1 C 70 11/17/21 08:13 36.5 C 69 18 148/62 H Pulse Ox 11/17/21 12:51 11/17/21 12:40 11/17/21 12:20 11/17/21 12:00 11/17/21 11:40 11/17/21 11:20 11/17/21 11:00 11/17/21 10:40 11/17/21 10:20 11/17/21 10:00 11/17/21 09:44 11/17/21 09:22 11/17/21 08:13 100 Laboratory Results 11/17/21 05:55 11/17/21 05:55
--- NOTE | 2021-11-17 18:38 | Hospitalist Progress Note ---
Date of Service November 17, 2021 Assessment & Plan (1) Status post lumbar surgery: Plan: Post op day# 1 S/P L4-L5 decompression and fusion today by Dr Tatum Possible Acute Blood Loss Anemia EBL# 150ml Hg 12 to 9 continue to monitor Tylenol TID round the clock added for pain control monitor closely (2) ESRD (end stage renal disease) on dialysis: Plan: ESRD On HD on Mon, Wed, Fri schedule Follows with Dr Lincoln in [place] -Nephrology consult for assistance with HD - resume Lisinopril (3) Diabetes mellitus, type 2: Plan: Insulin dependent A1c: 6.2 on 02/2021 basal bolus insulin per protocol. Glycemic pharmacist on board. Appreciate management (4) CAD (coronary artery disease): (5) PAD (peripheral artery disease): Plan: S/P PCI to LAD. H/O LE angioplasty -Continue aspirin, atorvastatin, carvedilol (6) Hypertension: Plan: resume Lisinopril -Continue carvedilol (7) Hyperlipidemia: Plan: -Continue atorvastatin (8) GERD (gastroesophageal reflux disease): Plan: Continue PPI DVT Prophylaxis -SCDs Disposition per primary provider Follows with Dr Meño Diaz in [place] for routine care Admission and Anticipated Discharge Date Admission Date: November 16, 2021 Subjective ff up s/p back surgery, etc seen resting in bed states her back pain is increased today no leg weakness/numbness no chest pain, dyspnea, palpitations, dizziness no other symptoms Review of Systems Review of Systems: all noted and negative except for above Physical Exam Physical Exam: General- oriented x 2, not in distress, speaks in sentences w ith no effort or accessory muscle use Eyes- anicteric Neck- no JVD Lungs- clear BS bilaterally, no rales/wheezes Heart- normal rate, regular rhythm; no murmurs Abdomen- normal bowel sounds, nondistended, soft, nontender Extremities- no pretibial edema, no calf tenderness back: dressing in place- no bleeding/discharge, drain in place with mild serosanguinous output Neuro- alert, oriented x 3; no gross focal neurologic deficits Skin- warm & dry Results & Data Results & Data ([facility]) Vital Signs (Past 12 Hours) Vital Signs Temp Pulse Pulse Pulse Resp BP BP 11/17/21 15:23 37.2 C 79 16 130/67 11/17/21 12:51 36.7 C 70 142/63 H 11/17/21 12:40 72 132/66 11/17/21 12:20 70 109/44 L 11/17/21 12:00 70 123/67 11/17/21 11:40 70 123/67 11/17/21 11:20 67 122/97 11/17/21 11:00 70 158/97 H 11/17/21 10:40 69 133/78 11/17/21 10:20 70 137/67 11/17/21 10:00 55 L 107/90 11/17/21 09:44 75 133/31 L 11/17/21 09:22 37.1 C 70 11/17/21 08:13 36.5 C 69 18 148/62 H Pulse Ox 11/17/21 15:23 100 11/17/21 12:51 11/17/21 12:40 11/17/21 12:20 11/17/21 12:00 11/17/21 11:40 11/17/21 11:20 11/17/21 11:00 11/17/21 10:40 11/17/21 10:20 11/17/21 10:00 11/17/21 09:44 11/17/21 09:22 11/17/21 08:13 100 all noted and reviewed including below
[2021-11-17] MEDS ORDERED: INSULIN GLARGINE SOLOSTAR 100 UNITS/ML 3 ML PEN SC SCH (21:00)
[2021-11-17] MEDS: ACETAMINOPHEN 325 MG TAB PO SCH (21:10)
[2021-11-17] MEDS: ATORVASTATIN 40 MG TAB PO SCH (21:14)
[2021-11-17] MEDS: DOCUSATE CALCIUM 240 MG CAPSULE PO SCH (21:14)
[2021-11-17] MEDS: DOCUSATE SODIUM/SENNA 50/8.6MG TAB PO SCH (21:14)
[2021-11-17] MEDS: NEPHROCAPS PO SCH (21:14)
[2021-11-17] MEDS: lisinopril 20 MG TAB PO SCH (22:06)
[2021-11-18] MEDS: POLYETHYLENE (MIRALAX) 17 GM PACK PO SCH ×4 (00:24→17:54)
[2021-11-18] MEDS: oxyCODONE HCL IR 5 MG TAB (IMMEDIATE RELEASE) PO PRN (00:27)
[2021-11-18] MEDS: HYDROmorphone INJ 1 MG/ML SYRINGE IV PRN (02:02)
[2021-11-18 06:57] LABS: BUN Creatinine Ratio 6.6 (10-20); Calcium 8.6 mg/dl (8.5-10.1); Creatinine Clr Calc Pharmacy 11.8 ml/min; Est GFR (African American) 9.9 ml/min; Est GFR (Non-African American) 8.6 ml/min; Potassium 4.3 mmol/L (3.5-5.1)
--- NOTE | 2021-11-18 08:04 | Orthopedic Progress Note ---
Date of Service November 18, 2021 Assessment & Plan (1) Lumbar disc herniation with radiculopathy: Plan: Patient is can continue with physical therapy today. Will monitor KIRSTEN output. Possible discharge home tomorrow after hemodialysis or Monday. Admission and Anticipated Discharge Date Admission Date: November 16, 2021 Subjective Patient complaining of back pain but leg symptoms markedly improved Physical Exam Physical Exam: She does demonstrate good strength testing left lower extremity. Patient appears comfortable. Results & Data ([facility]) Vital Signs (Past 12 Hours) Vital Signs Temp Pulse Pulse Resp BP Pulse Ox 11/18/21 07:33 37.4 C 72 16 128/50 L 95 11/18/21 03:57 36.9 C 72 16 120/69 100 11/17/21 22:19 37.2 C 75 17 126/66 95 11/17/21 20:29 37.3 C 77 16 141/65 H 99
[2021-11-18] MEDS: INSULIN ASPART PER UNIT SC SCH ×4 (09:10→21:09)
[2021-11-18] MEDS: PANTOprazole 40 MG TAB PO SCH (09:19)
[2021-11-18] MEDS: MULTIVITAMIN TAB PO SCH (09:19)
[2021-11-18] MEDS: lisinopril 20 MG TAB PO SCH ×2 (09:20→20:49)
[2021-11-18] MEDS: carvediloL 25 MG TAB PO SCH ×2 (09:20→20:47)
[2021-11-18] MEDS: ASPIRIN 81 MG ECTAB PO SCH (09:20)
[2021-11-18] MEDS: ACETAMINOPHEN 325 MG TAB PO SCH ×2 (09:20→13:36)
[2021-11-18] MEDS: CALCIUM ACETATE 667 MG CAP/TAB PO SCH ×3 (09:23→17:41)
--- NOTE | 2021-11-18 10:59 | Nephrology Progress Note ---
Date of Service November 18, 2021 Assessment & Plan (1) ESRD (end stage renal disease) on dialysis: Plan: tolerated 2L UF yesterday; plan routine HD tomorrow; volume status and chemistries acceptable today -no heparin on txs for now -next HD on 11/19 or as clinical needs dictate >>significant drop in hgb noted yesterday - some likely dilutional > will recheck in AM Admission and Anticipated Discharge Date Admission Date: November 16, 2021 Subjective seen on rounds this am 0900; in tears d/t back pain. no sob, no n/v; not wanting to eat but d/t timing/diet preferences more than sx Review of Systems Review of Systems: All systems reviewed & are unremarkable except as noted in Subjective Physical Exam Constitutional: well developed, well nourished, + acute distress (tearful) and average body habitus Eyes: EOM intact bilaterally ENMT: Ears: no external ear abnormality Nose: no external nose abnormality Mouth: + dry oral mucous membranes Neck: no nuchal rigidity Respiratory: normal respiratory effort Auscultation: + diminished lung sounds Cardiovascular: Rate/Rhythm: regular rate and regular rhythm Extremities: no edema Gastrointestinal (Abdomen): Inspection/Auscultation: normal bowel sounds Percussion/Palpation: abdomen soft; abdomen nontender Musculoskeletal: Extremities: strength 5/5 throughout Skin: no rashes, warm and dry Psychiatric: Orientation: oriented x 3 Results & Data ([facility]) Vital Signs (Past 12 Hours) Vital Signs Temp Pulse Pulse Resp BP Pulse Ox 11/18/21 07:33 37.4 C 72 16 128/50 L 95 11/18/21 03:57 36.9 C 72 16 120/69 100
--- NOTE | 2021-11-18 19:29 | Hospitalist Progress Note ---
Date of Service November 18, 2021 Assessment & Plan (1) Status post lumbar surgery: Plan: Post op day# 2 S/P L4-L5 decompression and fusion today by Dr Tatum Possible Acute Blood Loss Anemia EBL# 150ml Hg 12 to 9 continue to monitor Tylenol TID round the clock added for pain control Patient reassured that she can have IV or oral pain medications as needed (2) ESRD (end stage renal disease) on dialysis: Plan: ESRD On HD on Mon, Wed, Fri schedule Follows with Dr Lincoln in [place] -Nephrology consult for assistance with HD - resumed Lisinopril (3) Diabetes mellitus, type 2: Plan: Insulin dependent A1c: 6.2 on 02/2021 basal bolus insulin per protocol. Glycemic pharmacist on board. Appreciate management (4) CAD (coronary artery disease): (5) PAD (peripheral artery disease): Plan: S/P PCI to LAD. H/O LE angioplasty -Continue aspirin, atorvastatin, carvedilol (6) Hypertension: Plan: -Continue carvedilol and lisinopril (7) Hyperlipidemia: Plan: -Continue atorvastatin (8) GERD (gastroesophageal reflux disease): Plan: Continue PPI DVT Prophylaxis -SCDs Disposition per primary provider plan of care discussed with patient in detail and at length all questions answered she is understanding, agreeable, comfortable with the plan of care Admission and Anticipated Discharge Date Admission Date: November 16, 2021 Subjective Follow-up for status post back surgery, end-stage renal disease, etc. Seen resting in bed, not in distress Patient very upset though as her pain was not controlled adequately overnight Patient reports she was told by the RN that she cannot have IV pain medicine as this can result to her not being discharged Patient reassured that she can still have IV and oral pain medications to a ddress her pain Denies chest pain, shortness of breath, dizziness, palpitations No abdominal pain, nausea vomiting no other symptoms Review of Systems Review of Systems: all noted and negative except for above Physical Exam Physical Exam: General- oriented x 3, not in distress, speaks in sentences with no effort or accessory muscle use Eyes- anicteric Neck- no JVD Lungs- clear breath sounds bilaterally, no crackles or wheezing Heart- normal rate, regular rhythm; no murmurs Abdomen- normal bowel sounds, nondistended, soft, nontender Extremities- no pretibial edema, no calf tenderness Neuro- alert, oriented x 3; no gross focal neurologic deficits Skin- warm & dry Results & Data Results & Data ([facility]) Vital Signs (Past 12 Hours) Vital Signs Temp Pulse Resp BP Pulse Ox 11/18/21 14:26 37.3 C 64 16 132/74 93 11/18/21 07:33 37.4 C 72 16 128/50 L 95 all noted and reviewed including below
[2021-11-18] MEDS: ACETAMINOPHEN W/CODEINE #3 1 TAB PO PRN (19:39)
[2021-11-18] MEDS: DOCUSATE CALCIUM 240 MG CAPSULE PO SCH (20:46)
[2021-11-18] MEDS: ATORVASTATIN 40 MG TAB PO SCH (20:46)
[2021-11-18] MEDS: DOCUSATE SODIUM/SENNA 50/8.6MG TAB PO SCH (20:46)
[2021-11-18] MEDS: NEPHROCAPS PO SCH (20:46)
[2021-11-18] MEDS: INSULIN GLARGINE SOLOSTAR 100 UNITS/ML 3 ML PEN SC SCH (20:56)
[2021-11-18] MEDS ORDERED: INSULIN GLARGINE SOLOSTAR 100 UNITS/ML 3 ML PEN SC SCH (21:00)
[2021-11-19] MEDS: POLYETHYLENE (MIRALAX) 17 GM PACK PO SCH ×5 (00:53→23:23)
[2021-11-19] MEDS: HYDROmorphone INJ 1 MG/ML SYRINGE IV PRN ×2 (03:17→21:34)
[2021-11-19] MEDS ORDERED: SODIUM CHLORIDE 0.9% 1000ML 1,000 ML IV PRN (07:00)
[2021-11-19] MEDS ORDERED: EPOETIN ALFA 10,000 UNITS/ML VIAL IV SCH (07:00)
[2021-11-19] MEDS: CALCIUM ACETATE 667 MG CAP/TAB PO SCH ×4 (08:22→17:49)
[2021-11-19] MEDS: ACETAMINOPHEN W/CODEINE #3 1 TAB PO PRN ×2 (08:22→15:48)
[2021-11-19] MEDS: INSULIN ASPART PER UNIT SC SCH ×5 (08:24→21:36)
[2021-11-19] MEDS: CHOLECALCIFEROL 1,000 UNITS 25 MCG TAB PO SCH (08:56)
[2021-11-19] MEDS: ASPIRIN 81 MG ECTAB PO SCH (08:56)
[2021-11-19] MEDS: MULTIVITAMIN TAB PO SCH (08:56)
[2021-11-19] MEDS: PANTOprazole 40 MG TAB PO SCH (08:56)
[2021-11-19] MEDS: carvediloL 25 MG TAB PO SCH ×2 (08:57→20:52)
[2021-11-19] MEDS: lisinopril 20 MG TAB PO SCH ×2 (08:57→20:53)
[2021-11-19 09:13] LABS: Iron 20 mcg/dl (35-150); Total Iron Binding Cap Calc 173 mcg/dl (250-450); Transferrin (FE) Percent Satur 12 % (15-50); Unsaturated Iron Binding Cap 153 mcg/dl (155-355)
[2021-11-19 09:15] LABS: Calcium 9.4 mg/dl (8.5-10.1); Est GFR (African American) 7.2 ml/min; Est GFR (Non-African American) 6.2 ml/min; Potassium 4.6 mmol/L (3.5-5.1)
--- NOTE | 2021-11-19 11:22 | Orthopedic Progress Note ---
Date of Service November 19, 2021 Assessment & Plan (1) Lumbar disc herniation with radiculopathy: Plan: This time we will continue physical therapy. She is struggling with quite a bit of pain issues. Hopefully we can get this better controlled today. She is undergoing dialysis today. We will reassess her Monday and possibly home this . Admission and Anticipated Discharge Date Admission Date: November 16, 2021 Subjective Patient complaining of considerable back pain. Her leg radicular pain is improved but still has some soreness. Physical Exam Physical Exam: Patient is in the chair at the bedside. Is good strength testing. Results & Data ([facility]) Vital Signs (Past 12 Hours) Vital Signs Temp Pulse Pulse Pulse Resp BP BP 11/19/21 10:40 62 149/63 H 11/19/21 10:26 37 C 62 11/19/21 08:00 37 C 70 16 156/72 H Pulse Ox 11/19/21 10:40 11/19/21 10:26 11/19/21 08:00 97
[2021-11-19] MEDS: HYDROmorphone INJ 0.5 MG/0.5 ML SYR IV PRN ×2 (12:52→17:29)
[2021-11-19] MEDS: INSULIN GLARGINE SOLOSTAR 100 UNITS/ML 3 ML PEN SC SCH (18:06)
--- NOTE | 2021-11-19 18:13 | Nephrology Progress Note ---
Date of Service November 19, 2021 Assessment & Plan (1) ESRD (end stage renal disease) on dialysis: Plan: tolerated 2.2L UF today; volume status and chemistries acceptable today -no heparin on txs for now -next HD on 11/22 as OP or IP as clinical needs dictate >>significant drop in hgb noted yesterday - some likely dilutional > did rebound on recheck Admission and Anticipated Discharge Date Admission Date: November 16, 2021 Subjective still w/ lots of LBP but better controlled today; no n/v; no sob; mood better. Review of Systems Review of Systems: All systems reviewed & are unremarkable except as noted in Subjective Physical Exam Constitutional: well developed, well nourished and average body habitus; no acute distress Eyes: EOM intact bilaterally ENMT: Ears: no external ear abnormality Nose: no external nose abnormality Mouth: + dry oral mucous membranes Neck: no nuchal rigidity Respiratory: normal respiratory effort Auscultation: + diminished lung sounds Cardiovascular: Rate/Rhythm: regular rate and regular rhythm Extremities: no edema Gastrointestinal (Abdomen): Inspection/Auscultation: normal bowel sounds Percussion/Palpation: abdomen soft; abdomen nontender Musculoskeletal: Extremities: strength 5/5 throughout Skin: no rashes, warm and dry Neurologic: candelaria, fluent speech, no tremor Psychiatric: Orientation: oriented x 3 Results & Data ([facility]) Vital Signs (Past 12 Hours) Vital Signs Temp Pulse Pulse Pulse Resp BP BP 11/19/21 14:32 36.8 C 81 127/68 11/19/21 14:00 75 127/55 L 11/19/21 13:40 75 161/75 H 11/19/21 13:20 72 154/75 H 11/19/21 13:00 72 127/61 11/19/21 12:40 74 161/67 H 11/19/21 12:20 67 132/52 L 11/19/21 12:00 55 L 100/37 L 11/19/21 11:40 68 156/66 H 11/19/21 11:20 64 137/64 11/19/21 11:00 74 129/78 11/19/21 10:40 62 149/63 H 11/19/21 10:26 37 C 62 11/19/21 08:00 37 C 70 16 156/72 H Pulse Ox 11/19/21 14:32 11/19/21 14:00 11/19/21 13:40 11/19/21 13:20 11/19/21 13:00 11/19/21 12:40 11/19/21 12:20 11/19/21 12:00 11/19/21 11:40 11/19/21 11:20 11/19/21 11:00 11/19/21 10:40 11/19/21 10:26 11/19/21 08:00 97 Laboratory Results 11/19/21 07:55 11/19/21 07:55
--- NOTE | 2021-11-19 20:33 | Hospitalist Progress Note ---
Date of Service November 19, 2021 Assessment & Plan (1) Status post lumbar surgery: Plan: Post op day# 2 S/P L4-L5 decompression and fusion today by Dr Tatum Possible Acute Blood Loss Anemia EBL# 150ml Hg 12 to 9 continue to monitor Tylenol TID round the clock added for pain control Patient reassured that she can have IV or oral pain medications as needed (2) ESRD (end stage renal disease) on dialysis: Plan: ESRD On HD on Mon, Wed, Fri schedule Follows with Dr Lincoln in [place] -Nephrology consult for assistance with HD - resumed Lisinopril (3) Diabetes mellitus, type 2: Plan: Insulin dependent A1c: 6.2 on 02/2021 basal bolus insulin per protocol. Glycemic pharmacist on board. Appreciate management (4) CAD (coronary artery disease): (5) PAD (peripheral artery disease): Plan: S/P PCI to LAD. H/O LE angioplasty -Continue aspirin, atorvastatin, carvedilol (6) Hypertension: Plan: -Continue carvedilol and lisinopril (7) Hyperlipidemia: Plan: -Continue atorvastatin (8) GERD (gastroesophageal reflux disease): Plan: Continue PPI DVT Prophylaxis -SCDs Disposition per primary provider plan of care discussed with patient in detail and at length all questions answered she is understanding, agreeable, comfortable with the plan of care Admission and Anticipated Discharge Date Admission Date: November 16, 2021 Results & Data Results & Data ([facility]) Vital Signs (Past 12 Hours) Vital Signs Temp Pulse Pulse BP BP 11/19/21 14:32 36.8 C 81 127/68 11/19/21 14:00 75 127/55 L 11/19/21 13:40 75 161/75 H 11/19/21 13:20 72 154/75 H 11/19/21 13:00 72 127/61 11/19/21 12:40 74 161/67 H 11/19/21 12:20 67 132/52 L 11/19/21 12:00 55 L 100/37 L 11/19/21 11:40 68 156/66 H 11/19/21 11:20 64 137/64 11/19/21 11:00 74 129/78 11/19/21 10:40 62 149/63 H 11/19/21 10:26 37 C 62
[2021-11-19] MEDS: ATORVASTATIN 40 MG TAB PO SCH (20:48)
[2021-11-19] MEDS: DOCUSATE CALCIUM 240 MG CAPSULE PO SCH (20:49)
[2021-11-19] MEDS: DOCUSATE SODIUM/SENNA 50/8.6MG TAB PO SCH (20:49)
[2021-11-19] MEDS: NEPHROCAPS PO SCH (20:49)
[2021-11-20] MEDS: ACETAMINOPHEN W/CODEINE #3 1 TAB PO PRN (05:09)
[2021-11-20] MEDS: POLYETHYLENE (MIRALAX) 17 GM PACK PO SCH (05:10)
[2021-11-20 06:29] LABS: BUN Creatinine Ratio 5.8 (10-20); Calcium 8.8 mg/dl (8.5-10.1); Creatinine Clr Calc Pharmacy 13.5 ml/min; Est GFR (African American) 11.6 ml/min; Potassium 4.1 mmol/L (3.5-5.1)
--- NOTE | 2021-11-20 08:40 | Discharge Summary ---
Date of Service November 20, 2021 Admission HPI Per Admitting Provider This is a 56-year-old female presents with worsening back and leg pain after failing course of nonoperative care is here for surgical invention. Admission Exam (Per Admitting) Constitutional average body habitus Eyes normal visual gould by confrontation Neck normal visual inspection Respiratory normal respiratory effort Cardiovascular Rate/Rhythm: regular rate Gastrointestinal (Abdomen) Inspection/Auscultation: abdomen normal to inspection Musculoskeletal Extremities: + amputation noted and + foot abnormality Skin no rashes, warm and dry Neurologic normal touch/pain/proprioception Psychiatric A+Ox3, euthymic affect Discharge Data Consultations 11/16/21 15:06 Consult Hospitalist Routine 11/16/21 16:27 Consult Nephrology Routine Procedures Performed Operation Date: 11/16/21 12:05 Actual Procedures p L4-L5 Decompression and Fusion, Spinal Cord Monitoring(Not Applicable) - Walter Tatum DO Hospital Course (1) Lumbar disc herniation with radiculopathy: Shen is being discharged home on postoperative day 4 status post lumbar decompression and fusion L4-5. She initially struggled with pain control issues in terms of lower back pain. This is now well controlled. She is up and ambulating several 100 feet in physical therapy. KIRSTEN drain output last shift was 20 cc. She is passing flatus and has a bowel movement. Lower extremity pain is greatly improved. Lab values have been stable throughout her hospital course. Discharge Instructions ACTIVITY RECOMMENDATIONS: SELF CARE INSTRUCTIONS AFTER THORACIC/LUMBAR FUSIONS 1. You may walk to your tolerance. It is good exercise for your legs and back. Expect some back and intermittent leg aches and pains. 2. You may perform "counter-top" level activities (make a sandwich, alisa with a project, etc.). 3. No bending or lifting of more than 10 pounds or back twisting of any nature (roll like a log when turning in bed). 4. You may ride in a car for 20-30 minutes at a time. No driving until after your first visit with your doctor. 5. Frequent changes of position and restricting sitting to 30 minutes at a time will help limit the amount of back spasms and stiffness you may experience. 6. You may discontinue the use of ambulatory aids (cane, crutches, etc.) once your strength and confidence allow. 7. You may salsa dance instructor the shower and let water strike your incision when you arrive home at least once daily. Do not take a tub bath, sit in a hot tub or go into a swimming pool until after your first recheck in the office. SPECIAL CARE INSTRUCTIONS: VERY IMPORTANT TO READ AND REVIEW A. Your surgical incision has been closed with a cosmetic suture under the skin that will dissolve in about 6 weeks. In 14 days, you can use a pair of clean scissors and cut the suture that is left outside of the skin at the ends of your incision. 1. The small skin tapes can be removed 7 days after surgery if they have not fallen off by that point. 2. You may keep the wound open to air as much as possible to promote healing after post-op day number 5 unless told otherwise by your doctor. 3. If you think the wound looks like it is becoming infected (redness or worsening drainage) and/or you are experiencing fever, chill or worsening back pain and muscle spasms, contact the office so that we may evaluate you as soon as possible. B. Complications are uncommon, but please contact us if you have any signs or symptoms of: 1. wound infection (fever higher than 102.5 degrees F, redness, separation of wound, drainage, or increasing pain from the incision) 2. blood clots in legs (pain, swelling, redness and warmth in legs) 3. urinary tract infection (fever higher than 102.5 degrees F, burning upon urination or increased frequency of urination) 4. nerve problems (inability to walk on your toes or heels, numbness, loss of bowel or bladder control) 5. any other symptoms that concern you C. Please call the office at if you have any concerns or questions about your operation or recovery. D. No smoking! Smoking drastically decreases the chance of a solid fusion. E. Do not take any anti-inflammatory medications (Indocin, Advil, Motrin, Aspirin, Naprosyn, etc.) as these may inhibit the chance of a solid fusion. Tylenol is okay to take for pain. MANAGING PAIN AFTER SPINAL SURGERY 1. Narcotic medication is intended for short-term use and will be provided for surgical pain. Surgical pain usually lasts for a period of 4-6 weeks. Narcotic medication includes Percocet, Vicodin, Darvocet, Tylenol #3 or Lortab. 2. Longer-term pain is more appropriately treated with non-narcotic medication such as Tylenol ES. 3. Muscle spasm is not appropriately treated with narcotics. Muscle relaxers such as Soma, Flexeril or Skelaxin can be used along with Tylenol ES. 4. Remember that we all live with some "aches and pains". This is not unusual or uncommon after an injury or as we get older. a. Back pain is expected and may include muscle spasms for 4 to 6 weeks after surgery. The pain should gradually improve. If the pain worsens for no apparent reason, please contact the office. b. Intermittent leg pain may also be experienced and should not be concerned about unless it worsens for no apparent reason. If so, please contact the office. 5. We will provide appropriate medication within the normal guidelines of their prescribed use. We will also be very cautious and aware of potential abuse and extended duration of patients' medication needs. a. Pain medications are for your comfort and to assist with sleep and rest so that the tissue can heal. They are not provided in order to return to normal activity and should not be used through the day. To do so or worsening pain at night can result from ongoing tissue damage and development of tolerance to the prescribed medicine. 6. Please allow 2-3 days to process refills. Prescriptions will not be mailed but must be picked up at the office. FOLLOW UP VISIT: Keep your scheduled follow-up appointment. Any questions, please call the office at .
[2021-11-20] MEDS: INSULIN ASPART PER UNIT SC SCH (08:48)
[2021-11-20] MEDS: lisinopril 20 MG TAB PO SCH (08:50)
[2021-11-20] MEDS: MULTIVITAMIN TAB PO SCH (08:50)
[2021-11-20] MEDS: PANTOprazole 40 MG TAB PO SCH (08:50)
[2021-11-20] MEDS: ASPIRIN 81 MG ECTAB PO SCH (08:50)
[2021-11-20] MEDS: CALCIUM ACETATE 667 MG CAP/TAB PO SCH (08:50)
[2021-11-20] MEDS: carvediloL 25 MG TAB PO SCH (08:50)
== END 2021-11-20 11:57 | disposition home health service (06) | DRG 453 ==
LOC: ASU 10:02 → 3E 13:54